=== PATIENT | male | born 1990 | race Caucasian/White ===

== ENCOUNTER 2020-02-08 20:44 | Emergency (ER) | payer BC ==
[~2020-02-08] VITALS: Ht 180.3 cm; Wt 92.5 kg
[2020-02-08 20:50] VITALS: Ht 180.3 cm; Wt 92.5 kg
[2020-02-08 21:43] VITALS: BP 124/82
== END 2020-02-08 21:41 | disposition home or self-care (01) ==
LOC: ED 20:44
DX: S81.812A Laceration without foreign body, left lower leg, initial encounter (principal); R03.0 Elevated blood-pressure reading, without diagnosis of hypertension; W22.8XXA Striking against or struck by other objects, initial encounter; Y93.89 Activity, other specified; Y92.89 Other specified places as the place of occurrence of the external cause; Y99.8 Other external cause status
CPT/HCPCS: J2001